=== PATIENT | male | born 1955 | race Caucasian/White ===

== ENCOUNTER 2022-11-11 05:30 | Inpatient (IN) | payer OTHER ==
[2022-11-06 10:15] LABS: BASOPHILS # (AUTO) 0.1 K/uL (0.0-0.2); BASOPHILS % (AUTO) 0.7 % (0.0-2.0); EOSINOPHILS # (AUTO) 0.2 K/uL (0.0-0.4); EOSINOPHILS % (AUTO) 2.6 % (0.0-4.0); HEMATOCRIT 41.9 % (36-54); HEMOGLOBIN 14.1 g/dL (14.0-18.0); LYMPHOCYTES # (AUTO) 2.7 K/uL (1.0-5.5); LYMPHOCYTES % (AUTO) 37.6 % (20.5-51.5); MEAN CORPUSCULAR HEMOGLOBIN 33 pg (27-31); MEAN CORPUSCULAR HGB CONC 34 % (32-36); MEAN CORPUSCULAR VOLUME 96 fL (79.0-98.0); MONOCYTES # (AUTO) 0.7 K/uL (0.0-1.0); MONOCYTES % (AUTO) 9.7 % (1.7-9.3); NEUTROPHILS # (AUTO) 3.5 K/uL (1.8-7.7); NEUTROPHILS % (AUTO) 49.4 % (40.0-70.0); PLATELET COUNT (AUTO) 230 K/uL (130-430); RED BLOOD CELL COUNT(AUTO) 4.35 MIL/uL (4.2-6.2); RED CELL DISTRIBUTION WIDTH 13.9 % (9.0-15.0); WHITE BLOOD COUNT (AUTO) 7.2 K/uL (4.8-10.8)
[2022-11-06 10:31] LABS: PROTHROMBIN TIME 10.9 SECS (9.5-12.5)
[2022-11-06 10:32] LABS: BILIRUBIN,URINE NEGATIVE (NEGATIVE); BLOOD, URINE NEGATIVE (NEGATIVE); CLARITY/URINE CLEAR (CLEAR); COLOR,URINE YELLOW (YELLOW); GLUCOSE,URINE NEGATIVE (NEGATIVE); KETONES,URINE NEGATIVE (NEGATIVE); LEUKOCYTE ESTERASE ,URINE NEGATIVE (NEGATIVE); NITRITE, URINE NEGATIVE (NEGATIVE); PROTEIN URINE NEGATIVE (NEGATIVE); UROBILINOGEN,URINE 0.2 (0.2-1.0)
[2022-11-06 10:43] LABS: ANION GAP 8 (5-15); CALCIUM 7.8 mg/dL (8.4-11.0); CHLORIDE 109 mmol/L (98-107); CREATININE 0.92 mg/dL (0.55-1.30); GLUCOSE 109 mg/dL (70-99); UREA NITROGEN, BLOOD 10 mg/dL (8-21)
[2022-11-06 10:48] LABS: GFR AFRICAN AMERICAN 106 mL/min (>90)
[2022-11-06 10:49] LABS: C-REACTIVE PROTEIN QUANT < 0.2 mg/dL (0-0.5)
[2022-11-06 11:11] LABS: ERYTHROCYTE SEDIMENTATION RATE 5 MM/HR (0-15)
[~2022-11-11] VITALS: Ht 170.2 cm; Wt 100.7 kg
[2022-11-11] MEDS ORDERED: CEFAZOLIN SOD 2 GM in D5W 50 ML IV ONE (06:45)
[2022-11-11] MEDS ORDERED: ceFAZolin SODIUM 2 GM in D5W 100 ML IV ONE (06:45)
[2022-11-11] MEDS ORDERED: BUPIVACAINE /PF 0.25% 30 ML VIAL INJ ONE (06:55)
[2022-11-11] MEDS ORDERED: MORPHINE SULFATE 10MG/10ML PF AMP EP ONE (06:55)
[2022-11-11] MEDS ORDERED: NS 1000 ML IV.SOLN IV ONE (06:55)
[2022-11-11] MEDS ORDERED: CEFAZOLIN 2 GM IVPB PREMIX 50 ML IV ONE (06:55)
[2022-11-11] MEDS ORDERED: ePHEDrine sulfate 50 MG/ML VIAL IVP ONE (06:55)
[2022-11-11] MEDS ORDERED: VANCOMYCIN HCL 1000 MG/VIAL IV ONE (06:55)
[2022-11-11] MEDS ORDERED: BUPIVACAINE /DEX PF 0.75% SPINAL 2 ML AMP INJ ONE (06:55)
[2022-11-11] MEDS ORDERED: LR 1,000 ML IV.SOLN IV ONE (06:55)
[2022-11-11] MEDS ORDERED: WATER FOR IRRIGATION,STERILE 1,000 ML IRRIG.SOLN IR ONE (06:55)
[2022-11-11] MEDS ORDERED: MIDAZOLAM HCL 5 MG/5 ML VIAL IVP ONE (06:55)
[2022-11-11] MEDS ORDERED: KETOROLAC TROMETHAMINE 30 MG VIAL IVP ONE (06:55)
[2022-11-11] MEDS ORDERED: SIMV40TA2 PO (07:53)
[2022-11-11] MEDS ORDERED: OMEP20CA15 PO (07:53)
[2022-11-11] MEDS ORDERED: APIX5TAB PO (07:53)
[2022-11-11] MEDS ORDERED: LOSA50TA3 PO (07:53)
[2022-11-11] MEDS ORDERED: COR25 PO (07:53)
[2022-11-11] MEDS ORDERED: CETI1TAB2 PO (07:53)
[2022-11-11] MEDS ORDERED: HYDROmorphone 1 MG/ML INJ. CARTRIDGE IVP PRN ×5 (08:00→11:00)
[2022-11-11] MEDS ORDERED: METOCLOPRAMIDE HCL 10 MG/2 ML VIAL IVP PRN ×2 (08:00→09:30)
[2022-11-11] MEDS: LR 1,000 ML IV SCH ×2 (08:00→18:00)
[2022-11-11] MEDS ORDERED: MEPERIDINE HCL/PF 25 MG/ML DISP.SYRIN IVP PRN (08:00)
[2022-11-11] MEDS ORDERED: ACETAMINOPHEN I.V. 1000 MG 100 ML IV ONE (08:02)
[2022-11-11] MEDS ORDERED: DIPHENHYDRAMINE HCL 25 MG CAPSULE PO PRN (09:30)
[2022-11-11] MEDS ORDERED: NALOXONE HCL 0.4 MG/ML AMP (NARCAN) IVP PRN ×5 (09:30→11:00)
[2022-11-11] MEDS ORDERED: LACTULOSE 20 GM/30 ML UDC PO PRN (09:30)
[2022-11-11] MEDS ORDERED: BISACODYL 10 MG/SUPPOSITORY RC PRN (09:30)
[2022-11-11] MEDS ORDERED: ALBUMIN HUMAN 5% 500 ML IV ONE (10:00)
[2022-11-11] MEDS ORDERED: MUPIROCIN 2% TOPICAL OINTMENT 22 GM NS PRN (11:00)
[2022-11-11] MEDS ORDERED: POTASSIUM CHLORIDE 20 MEQ TAB.PRT.SR PO PRN (11:00)
[2022-11-11] MEDS ORDERED: traMADol HCL HCL 50 MG TABLET (ULTRAM) PO PRN (11:00)
[2022-11-11] MEDS ORDERED: LORATADINE 10 MG TABLET PO PRN (11:00)
[2022-11-11] MEDS ORDERED: MORPHINE 2 MG/ML INJ. SYRINGE IVP PRN ×2 (11:00)
[2022-11-11] MEDS ORDERED: ZOLPIDEM TARTRATE 5 MG TABLET PO PRN (11:00)
[2022-11-11] MEDS ORDERED: ACETAMINOPHEN 325 MG TABLET PO PRN (11:00)
[2022-11-11] MEDS ORDERED: DOCUSATE SODIUM 100 MG CAPSULE PO PRN (11:00)
[2022-11-11] MEDS ORDERED: ONDANSETRON HCL 4 MG/2 ML VIAL IVP PRN ×2 (11:00→11:45)
[2022-11-11] MEDS ORDERED: MAGNESIUM SULFATE 50 ML IV PRN (11:00)
[2022-11-11] MEDS ORDERED: LORazepam 2 MG/ML VIAL IVP PRN (11:00)
[2022-11-11 11:30] VITALS: BP_SYST 107
--- NOTE | 2022-11-11 11:30 | NUR ---
Admit Notes from PACU Received patient awake in bed from PACU, alert/awake/oriented/ x 4, no c/o pain or no signs of respiratory distress. Respiration even/unlabored, oxygen saturation at 97% room air. Right knee elevated with pillow with strong pedal pulses warm to touch. SCD machine applied to bilateral lower legs. Abdomen soft nondistended with positive bowel sounds. IV patent to right forearm patent, no signs of infiltration. All safety precaution intact w/ call light with in reached and bed in low position, continue to monitor.
[2022-11-11 11:44] VITALS: BP_SYST 110
--- NOTE | 2022-11-11 11:50 | NUR ---
CONSULTATION PAGED/CALLED Reason for Consultation: [] AFIB, HYPOTENSION Person Who was Notified: [] CHRISTINA Consulting Physician: [] DR HERNANDEZ Paper Carrier Specialty: [] CARDIO Ordering Physician: [] DR REED
--- NOTE | 2022-11-11 11:52 | NUR ---
CONSULTATION PAGED/CALLED Reason for Consultation: [] HOSPITAL MGMT Person Who was Notified: [] DR REED IS AWARE Consulting Physician: [] DR REED Collection Manager Specialty: [] INT MED; HOSPITALIST Ordering Physician: [] DR SRENA T
[2022-11-11 12:15] VITALS: BP_SYST 116
[2022-11-11] MEDS: NACL 0.9% 1,000 ML IV SCH ×2 (13:08→23:20)
[2022-11-11] MEDS: ceFAZolin SODIUM 2 GM in D5W 50 ML IV SCH ×2 (13:13→20:06)
--- NOTE | 2022-11-11 13:20 | NUR ---
Patient wake in bed no c/o pain/ at this time to right knee will continue to monitor
[2022-11-11] MEDS ORDERED: KETOROLAC TROMETHAMINE 10 MG TABLET (TORADOL) PO SCH (14:00)
[2022-11-11] MEDS: ACETAMINOPHEN 500 MG TABLET PO SCH ×2 (14:17→21:28)
--- NOTE | 2022-11-11 15:10 | NUR ---
Patient ambulate w/PT in [address]
[2022-11-11 15:26] VITALS: BP_SYST 111
--- NOTE | 2022-11-11 15:45 | NUR ---
Polar care applied to right knee
[2022-11-11] MEDS: oxyCODONE HCL 5 MG TABLET PO PRN (17:51)
--- NOTE | 2022-11-11 18:48 | NUR ---
Closing Patient resting comfortable in bed, no c/o pain /SOB . Polar care to right knee. Tolerating meal, IV infusing to right forearm patent, all safety secured will endorse to oncoming nurse.
--- NOTE | 2022-11-11 19:30 | NUR ---
ROUNDS PATIENT RESTING COMFORTABLY IN BED, VITALS STABLE, DENIES PAIN AT THIS TIME. ASSESSMENT DONE AND DOCUMENTED. SEE FLOWSHEET. NEEDS ATTENDED TO. CALL LIGHT PLACED WITHIN REACH.
[2022-11-11 19:56] VITALS: BP_SYST 126
[2022-11-11] MEDS: SENNOSIDES/DOCUSATE SODIUM 1 TAB TABLET(SENOKOT-S) PO SCH (20:03)
[2022-11-11] MEDS: CARVEDILOL 25 MG TABLET (COREG) PO SCH (20:05)
[2022-11-12] MEDS: oxyCODONE HCL 5 MG TABLET PO PRN ×3 (00:53→18:01)
[2022-11-12 01:18] VITALS: BP_SYST 116
[2022-11-12] MEDS: ceFAZolin SODIUM 2 GM in D5W 50 ML IV SCH (03:20)
[2022-11-12] MEDS: ACETAMINOPHEN 500 MG TABLET PO SCH ×3 (05:20→21:31)
[2022-11-12] MEDS: NACL 0.9% 1,000 ML IV SCH ×2 (05:34→15:27)
--- NOTE | 2022-11-12 06:55 | NUR ---
CLOSING NOTES PATIENT AWAKE, NO COMPLAINTS AT THIS TIME. ALL NEEDS ATTENDED TO. CALL LIGHT PLACED WITHIN REACH.
[2022-11-12 07:04] LABS: BASOPHILS % (AUTO) 0.1 % (0.0-2.0); HEMATOCRIT 35.6 % (36-54); HEMOGLOBIN 12.2 g/dL (14.0-18.0); LYMPHOCYTES # (AUTO) 1.3 K/uL (1.0-5.5); LYMPHOCYTES % (AUTO) 12.4 % (20.5-51.5); MEAN CORPUSCULAR HEMOGLOBIN 33 pg (27-31); MEAN CORPUSCULAR HGB CONC 34 % (32-36); MEAN CORPUSCULAR VOLUME 97 fL (79.0-98.0); MONOCYTES # (AUTO) 1.1 K/uL (0.0-1.0); MONOCYTES % (AUTO) 10.1 % (1.7-9.3); NEUTROPHILS # (AUTO) 8.2 K/uL (1.8-7.7); NEUTROPHILS % (AUTO) 77.4 % (40.0-70.0); PLATELET COUNT (AUTO) 193 K/uL (130-430); RED BLOOD CELL COUNT(AUTO) 3.68 MIL/uL (4.2-6.2); RED CELL DISTRIBUTION WIDTH 13.7 % (9.0-15.0); WHITE BLOOD COUNT (AUTO) 10.6 K/uL (4.8-10.8)
--- NOTE | 2022-11-12 07:25 | NUR ---
OPENING NOTE Received patient report from RN. Patient resting in bed. A/O x4, Kitt[place] speaking. Breathing is even and unlabored on room air. No pain, No SOB, No distress noted at this time. Patient on bedrest but able to walk with assist. Patient has IV to LFA 20g. patent on infusion pump. Patient to possibly DC home today once home health and PT are arranged. All needs met at this time, bed is locked in lowest position, call light within reach. Will continue to monitor.
--- NOTE | 2022-11-12 07:26 | NUR ---
MD Alfaro at bedside. stated to send patient home once PT home health is arranged first. Will coordinate with Case manger.
[2022-11-12 07:32] LABS: CALCIUM 8.1 mg/dL (8.4-11.0); CREATININE 0.79 mg/dL (0.55-1.30); TOTAL BILIRUBIN 0.9 mg/dL (0.0-1.0)
[2022-11-12 08:00] VITALS: BP_SYST 147; BP_SYST 99
[2022-11-12] MEDS: CARVEDILOL 25 MG TABLET (COREG) PO SCH ×2 (08:53→21:31)
[2022-11-12] MEDS: SIMVASTATIN 40 MG TABLET PO SCH (08:53)
[2022-11-12] MEDS: DECADRON 4 MG TABLET PO SCH (08:54)
[2022-11-12] MEDS: PANTOPRAZOLE SODIUM 40 MG TAB PO SCH (08:54)
[2022-11-12] MEDS: SENNOSIDES/DOCUSATE SODIUM 1 TAB TABLET(SENOKOT-S) PO SCH ×2 (08:55→21:32)
[2022-11-12] MEDS: APIXABAN 2.5 MG TABLET PO SCH ×2 (08:57→21:33)
[2022-11-12] MEDS ORDERED: APIXABAN 2.5 MG TABLET PO SCH (09:00)
[2022-11-12] MEDS ORDERED: LOSARTAN POTASSIUM 50 MG TABLET (COZAAR) PO SCH (09:00)
[2022-11-12 11:29] VITALS: BP_SYST 106
--- NOTE | 2022-11-12 12:14 | NUR ---
PAIN Patient complaining of right knee pain 9. PRN pain medication given. Will continue to monitor.
--- NOTE | 2022-11-12 12:15 | NUR ---
PATIENT ROUNDS Patient resting in bed. Breathing is even and unlabored on room air. No SOB, No distress noted at this time. All needs met at this time, bed is locked in lowest position, call light within reach. Will continue to monitor.
[2022-11-12 15:30] VITALS: BP_SYST 129
--- NOTE | 2022-11-12 16:58 | NUR ---
DISCHARGE Spoke with MD Alfaro regarding Home Health not being arranged as of yet. stated to keep patient one more night so Case Management can work on it. He stated he wants patient to have home health and does not want patient going home until it is arranged. Patient made aware.
--- NOTE | 2022-11-12 18:55 | NUR ---
CLOSING NOTE Patient resting in bed. A/O x4, Khmer speaking. Breathing is even and unlabored on room air. No pain, No SOB, No distress noted at this time. Patient on bedrest but able to walk with assist. Patient has IV to LFA 20g. patent on infusion pump. Patient to DC home tomorrow once home health and PT are arranged. All needs met at this time, bed is locked in lowest position, call light within reach. Will endorse to nightshift nurse.
--- NOTE | 2022-11-12 19:15 | NUR ---
OPENING NOTES Patient resting in bed - no s/s pain or distress noted. Respirations even and unlabored - head of bed elevated. IV site patent - no s/s redness, infection, or infiltration. Bed locked and in lowest position. Call light within reach.
[2022-11-13] MEDS: oxyCODONE HCL 5 MG TABLET PO PRN ×5 (01:13→11:49)
[2022-11-13 01:26] VITALS: BP_SYST 123
[2022-11-13] MEDS: NACL 0.9% 1,000 ML IV SCH ×2 (04:29→10:42)
[2022-11-13] MEDS: ACETAMINOPHEN 500 MG TABLET PO SCH ×2 (06:00→14:29)
--- NOTE | 2022-11-13 07:30 | NUR ---
PHYSICAL THERAPY CO-SIGN The Physical Therapy Progress Notes documented by Derrick Operator have been reviewed. Reviewed/Co-Signed by: John Fulton Documentation Done by: JONA LOO PTA Addendum: 11/13/22 at 0731 by John Fulton PT Amended: Links added.
--- NOTE | 2022-11-13 07:31 | NUR ---
OPENING ROUNDS RECEIVED BESIDE SBAR FROM PM SHIFT NURSE ESAU RN, PATIENT IS RESTING WELL IN BED, EYES CLOSED NO DISTRESS BED LOCKED AND IN LOW POSITION CALL LIGHT IN REACH ALL NEEDS BEING KNOWN, WILL CONT TO MONITOR PATIENT PER ORDERS.
[2022-11-13 08:01] VITALS: BP_SYST 135
[2022-11-13] MEDS: SENNOSIDES/DOCUSATE SODIUM 1 TAB TABLET(SENOKOT-S) PO SCH (09:12)
[2022-11-13] MEDS: PANTOPRAZOLE SODIUM 40 MG TAB PO SCH (09:12)
[2022-11-13] MEDS: SIMVASTATIN 40 MG TABLET PO SCH (09:12)
[2022-11-13] MEDS: CARVEDILOL 25 MG TABLET (COREG) PO SCH (09:13)
[2022-11-13] MEDS: DECADRON 4 MG TABLET PO SCH (09:13)
[2022-11-13] MEDS: APIXABAN 2.5 MG TABLET PO SCH (09:17)
[2022-11-13 10:34] LABS: CALCIUM 8.4 mg/dL (8.4-11.0); CREATININE 0.85 mg/dL (0.55-1.30)
[2022-11-13] MEDS ORDERED: cephALEXin 500 MG CAPSULE PO SCH (11:00)
[2022-11-13 12:00] VITALS: BP_SYST 128
--- NOTE | 2022-11-13 12:16 | NUR ---
CM: Per Dr Drummond: Dr Alfaro approves discharge patient home today prior to HH set up.
[2022-11-13 15:22] VITALS: BP_SYST 135
[2022-11-13 15:50] VITALS: BP_SYST 134
== END 2022-11-13 16:11 | disposition home health service (06) | DRG 470 ==
LOC: SMU 05:30 → STU 11:35
PROVIDERS: ADMIT Student in an Organized Health Care Education/Training Program; ATTEND Student in an Organized Health Care Education/Training Program
PROC: 0SRC0J9 Replacement of Right Knee Joint with Synthetic Substitute, Cemented, Open Approach (ICD-10-PCS; principal; 2022-11-11 07:12)
DX: M17.11 Unilateral primary osteoarthritis, right knee (principal); I42.9 Cardiomyopathy, unspecified; I48.20 Chronic atrial fibrillation, unspecified; E78.5 Hyperlipidemia, unspecified; I11.0 Hypertensive heart disease with heart failure; Z20.822 Contact with and (suspected) exposure to COVID-19; Z96.653 Presence of artificial knee joint, bilateral; I50.9 Heart failure, unspecified; I25.10 Atherosclerotic heart disease of native coronary artery without angina pectoris; I25.2 Old myocardial infarction; Z79.01 Long term (current) use of anticoagulants
CPT/HCPCS: 36415; 71045; 73560-TC; 80048; 80053; 81003; 83036; 83735; 83880; 85025; 85610-TC; 85651-TC; 85730-TC; 86140; 87081; 88305; 88311; 93005; 96379; 97110-GP; 97112-GP; 97116-GP; 97163-GP; 97530-GP; G0378; J0131; J0690; J1885; J2250; J2274; J3370; J3490; J7030; J7060; J7120; J8540; P9041; U0003